=== PATIENT | male | born 1955 | race Caucasian/White ===

== ENCOUNTER 2017-04-01 16:04 | Observation (INO) | payer OTHER ==
[~2017-04-01] VITALS: Ht 180.3 cm; Wt 90.6 kg
[2017-04-01 16:45] LABS: HEMATOCRIT 34.5 % (38.0-50.0); MCH 24.9 PG (29.0-34.0); MCHC 30.7 G/DL (30.0-36.0); MEAN PLAT.VOLUME 8.6 uM^3 (9.0-12.4); PLATELET COUNT 411 K/uL (156-360); RBC DIS.WIDTH-CV 14.5 % (11.8-14.6); RBC DIS.WIDTH-SD 42.4 % (39-53); RED BLOOD COUNT 4.26 M/uL (4.00-5.50)
[2017-04-01 16:53] LABS: INTER. NORMALIZED RATIO 1.3; PROTHROMBIN TIME 12.8 (9.2-11.2)
[2017-04-01 16:58] LABS: CHLORIDE 101 mEq/L (99-109); POTASSIUM 4.5 mEq/L (3.7-5.4); SODIUM 134 mEq/L (136-147)
[2017-04-01 17:01] LABS: GLUCOSE 111 mg/dL (70-99)
[2017-04-01 17:02] LABS: ANION GAP 8 MEQ/L (2-14)
[2017-04-01 17:03] LABS: TOTAL BILIRUBIN 0.3 mg/dL (0.0-1.0)
[2017-04-01 17:04] LABS: ALKALINE PHOSPHATASE 88 IU/L (3-129); GFR ESTIMATE (CALCULATED) > 59 mL/min/
[2017-04-01 17:05] LABS: UREA NITROGEN (BUN) 14 mg/dL (9-23)
[2017-04-01 17:08] LABS: LIPASE 14 U/L (1.0-51.0)
[2017-04-01 17:09] LABS: TROP-I INTERPRETATION NEGATIVE; TROPONIN-I < 0.01 ng/mL (0.0-0.30)
[2017-04-01] MEDS ORDERED: OMEPRAZOLE40 M1 PO (18:15)
[2017-04-01] MEDS ORDERED: MIRALAX255 GM PO (20:13)
[2017-04-01] MEDS ORDERED: OMEPRAZOLE20 MG PO (20:13)
[2017-04-01] MEDS ORDERED: DULCOLAX10 MG PR (20:13)
[2017-04-01] MEDS ORDERED: TRAMADOL HCL50 MG PO (20:13)
[2017-04-01] MEDS ORDERED: CENTRUM SILVER1 EAC5 PO (20:13)
[2017-04-01] MEDS ORDERED: ZOFRAN4 MG PO (20:14)
[2017-04-01] MEDS ORDERED: LO-DOSE ASPIRIN81 M2 PO (20:14)
[2017-04-01 21:14] LABS: SAMPLE HEMOLYSIS CHECK 0; SAMPLE ICTERIC CHECK 0; SAMPLE LIPEMIA CHECK 0
[2017-04-01 22:02] VITALS: BP 141/89
[2017-04-01 22:09] LABS: LACTATE DEHYDROGENASE 119 IU/L (20-246)
[2017-04-01 23:09] LABS: TROP-I INTERPRETATION NEGATIVE; TROPONIN-I < 0.01 ng/mL (0.0-0.30)
[2017-04-02 00:37] VITALS: BP 144/87
[2017-04-02 03:36] VITALS: BP 135/85
[2017-04-02 03:57] LABS: ADD MIUA? YES; BILIRUBIN NEGATIVE; BLOOD SMALL; COLOR YELLOW ((YELLOW)); GLUCOSE (STRIP) 50; KETONES NEGATIVE; LEUKOCYTES NEGATIVE; NITRITE NEGATIVE; PROTEIN (STRIP) 30; SPECIFIC GRAVITY 1.041 (1.000-1.030); UROBILINOGEN 0.2 MG/DL (0.2-1.0)
[2017-04-02 04:09] LABS: BACTERIA NONE SEEN /HPF; EPITHELIAL CELLS NONE SEEN /HPF; MUCUS TRACE /LPF; UCUL ADDED? NO; WHITE BLOOD CELLS 0-5 /HPF (0-5)
[2017-04-02 05:53] LABS: HEMATOCRIT 33.9 % (38.0-50.0); MCH 25.1 PG (29.0-34.0); MCHC 30.7 G/DL (30.0-36.0); MCV 81.9 FL (86-99); MEAN PLAT.VOLUME 8.9 uM^3 (9.0-12.4); PLATELET COUNT 405 K/uL (156-360); RBC DIS.WIDTH-CV 14.6 % (11.8-14.6); RBC DIS.WIDTH-SD 43.2 % (39-53); RED BLOOD COUNT 4.14 M/uL (4.00-5.50); WHITE BLOOD COUNT 13.8 K/uL (4.1-10.2)
[2017-04-02 06:18] LABS: INTER. NORMALIZED RATIO 1.2; PROTHROMBIN TIME 12.7 (9.2-11.2)
[2017-04-02 06:24] LABS: TROP-I INTERPRETATION NEGATIVE; TROPONIN-I < 0.01 ng/mL (0.0-0.30)
[2017-04-02 06:34] LABS: ANION GAP 7 MEQ/L (2-14); CHLORIDE 97 MEQ/L (99-109); GFR ESTIMATE (CALCULATED) > 59 mL/min/; GLUCOSE 94 mg/dL (70-99); POTASSIUM 4.7 MEQ/L (3.7-5.4); SAMPLE HEMOLYSIS CHECK 0; SAMPLE ICTERIC CHECK 0; SAMPLE LIPEMIA CHECK 0; SODIUM 133 MEQ/L (136-147); UREA NITROGEN (BUN) 14 mg/dL (9-23)
[2017-04-02 08:50] VITALS: BP 159/97
[2017-04-02] MEDS ORDERED: DOCUSATE SODIU100 MG PO (10:37)
[2017-04-02] MEDS ORDERED: OXYCODONE-APAP1 EACH PO (10:37)
[2017-04-02 12:46] VITALS: BP 143/85
== END 2017-04-02 13:40 | disposition home or self-care (01) ==
LOC: EME → EDBD 16:04 → EDOF 20:05 → 5WEST 21:51
PROVIDERS: Emergency Medicine; Internal Medicine
DX: R07.9 Chest pain, unspecified (principal); R11.2 Nausea with vomiting, unspecified; M54.9 Dorsalgia, unspecified; Z87.891 Personal history of nicotine dependence; I48.91 Unspecified atrial fibrillation; M48.06 Spinal stenosis, lumbar region; R59.0 Localized enlarged lymph nodes; K21.9 Gastro-esophageal reflux disease without esophagitis; R63.4 Abnormal weight loss; K59.00 Constipation, unspecified
CPT/HCPCS: 71010; 71275; 80048; 80053; 81003; 83615; 83690; 83880; 84484; 85027; 85610; 93005; 99281; 99285; G0378; J1650; J2270; J2405

== ENCOUNTER 2017-04-22 19:43 | Inpatient (IN) | payer OTHER ==
[~2017-04-22] VITALS: Ht 180.3 cm; Wt 94.8 kg
[~2017-04-22 19:43] MED LIST: CENTRUM SILVER1 EAC5 PO; DOCUSATE SODIU100 MG PO; DULCOLAX10 MG PR; LO-DOSE ASPIRIN81 M2 PO; MIRALAX255 GM PO; OMEPRAZOLE20 MG PO; OMEPRAZOLE40 M1 PO; OXYCODONE-APAP1 EACH PO; TRAMADOL HCL50 MG PO; ZOFRAN4 MG PO
[2017-04-22 20:45] LABS: HEMATOCRIT 27.7 % (38.0-50.0); MCH 24.5 PG (29.0-34.0); MCHC 30.7 G/DL (30.0-36.0); MCV 79.8 FL (86-99); MEAN PLAT.VOLUME 8.4 uM^3 (9.0-12.4); PLATELET COUNT 394 K/uL (156-360); RBC DIS.WIDTH-CV 14.7 % (11.8-14.6); RBC DIS.WIDTH-SD 42.8 % (39-53); RED BLOOD COUNT 3.47 M/uL (4.00-5.50)
[2017-04-22 20:56] LABS: CHLORIDE 99 mEq/L (99-109); POTASSIUM 3.5 mEq/L (3.7-5.4); SODIUM 132 mEq/L (136-147)
[2017-04-22 20:58] LABS: GLUCOSE 103 mg/dL (70-99)
[2017-04-22 21:00] LABS: ANION GAP 9 MEQ/L (2-14); TOTAL BILIRUBIN 0.3 mg/dL (0.0-1.0)
[2017-04-22 21:02] LABS: ALKALINE PHOSPHATASE 139 IU/L (3-129); GFR ESTIMATE (CALCULATED) > 59 mL/min/
[2017-04-22 21:03] LABS: UREA NITROGEN (BUN) 12 mg/dL (9-23)
[2017-04-22 21:06] LABS: LIPASE 10 U/L (1.0-51.0)
[2017-04-22] MEDS ORDERED: OXYCODONE HCL10 MG PO (22:42)
[2017-04-22] MEDS ORDERED: KADIAN30 MG PO (22:42)
[2017-04-23 03:22] VITALS: BP 130/76
[2017-04-23 08:45] VITALS: BP 135/84
[2017-04-23 11:44] VITALS: BP 132/86
[2017-04-23 15:56] VITALS: BP 142/90
[2017-04-23 19:00] VITALS: BP 148/86
[2017-04-23 23:21] VITALS: BP 142/69
[2017-04-24 06:18] LABS: BASOPHIL COUNT 0.1 K/uL (0-0.1); EOSINOPHIL (%) 5.6 % (0-5); EOSINOPHIL COUNT 0.8 K/uL (0-0.3); HEMATOCRIT 28.5 % (38.0-50.0); IMMATURE GRANULOCYTE COUNT 0.2 K/uL; INSTRUMENT ABS NEUTROPHIL CT 9.4 K/uL; LYMPHOCYTE COUNT 2.8 K/uL (1.0-2.8); MCH 25.1 PG (29.0-34.0); MCHC 30.5 G/DL (30.0-36.0); MCV 82.1 FL (86-99); MEAN PLAT.VOLUME 8.8 uM^3 (9.0-12.4); MONOCYTE (%) 10.4 % (3-12); MONOCYTE COUNT 1.5 K/uL (0-0.8); NEUTROPHIL (%) 63.5 % (45-76); NEUTROPHIL COUNT 9.4 K/uL (1.8-6.4); PLATELET COUNT 429 K/uL (156-360); RBC DIS.WIDTH-CV 14.7 % (11.8-14.6); RBC DIS.WIDTH-SD 44.5 % (39-53); RED BLOOD COUNT 3.47 M/uL (4.00-5.50); WHITE BLOOD COUNT 14.8 K/uL (4.1-10.2)
[2017-04-24 06:27] LABS: INTER. NORMALIZED RATIO 1.4; PROTHROMBIN TIME 14.1 (9.2-11.2); PTT 30.5 (25-32)
[2017-04-24 06:42] LABS: ALKALINE PHOSPHATASE 128 IU/L (3-129); ANION GAP 7 MEQ/L (2-14); CHLORIDE 98 MEQ/L (99-109); GFR ESTIMATE (CALCULATED) > 59 mL/min/; GLUCOSE 102 mg/dL (70-99); POTASSIUM 3.8 MEQ/L (3.7-5.4); SAMPLE HEMOLYSIS CHECK 0; SAMPLE ICTERIC CHECK 0; SAMPLE LIPEMIA CHECK 0; SODIUM 132 MEQ/L (136-147); TOTAL BILIRUBIN 0.4 MG/DL (0.0-1.0); UREA NITROGEN (BUN) 10 mg/dL (9-23)
[2017-04-24 07:04] VITALS: BP 136/84
[2017-04-24 08:39] LABS: ADD MIUA? YES; BILIRUBIN NEGATIVE; BLOOD NEGATIVE; COLOR YELLOW ((YELLOW)); GLUCOSE (STRIP) NEGATIVE; KETONES 5; LEUKOCYTES NEGATIVE; NITRITE NEGATIVE; PROTEIN (STRIP) 30; SPECIFIC GRAVITY 1.016 (1.000-1.030)
[2017-04-24 08:51] LABS: BACTERIA RARE /HPF; EPITHELIAL CELLS RARE /HPF; MUCUS 4+ /LPF; UCUL ADDED? NO; WHITE BLOOD CELLS 0-5 /HPF (0-5)
[2017-04-24 11:46] VITALS: BP 138/83
[2017-04-24 17:09] VITALS: BP 150/88
[2017-04-24 19:44] VITALS: BP 137/86
[2017-04-25] VITALS (7 sets, daily range): BP systolic 131–156; BP diastolic 70–83
[2017-04-25 06:26] LABS: IRON 13 MCG/DL (35-150)
[2017-04-25 06:42] LABS: LACTATE DEHYDROGENASE 144 IU/L (20-246)
[2017-04-25 09:59] LABS: HBSG INDEX 0.26; HPCA INDEX 0.14
[2017-04-25 10:02] LABS: ANTI-HEPATITIS A VIRUS (IGM) Nonreactive; ANTI-HEPATITIS B CORE (IGM) Nonreactive; HAV INDEX 0.12; HBC IgM INDEX 0.06
[2017-04-26 04:30] VITALS: BP 138/80
[2017-04-26 06:49] VITALS: BP 144/88
[2017-04-26 11:54] LABS: HEMATOCRIT 29.7 % (38.0-50.0); MCH 25.3 PG (29.0-34.0); MCHC 30.6 G/DL (30.0-36.0); MCV 82.5 FL (86-99); MEAN PLAT.VOLUME 8.4 uM^3 (9.0-12.4); PLATELET COUNT 423 K/uL (156-360); RBC DIS.WIDTH-SD 45.1 % (39-53); WHITE BLOOD COUNT 13.3 K/uL (4.1-10.2)
[2017-04-26 12:00] VITALS: BP 136/80
[2017-04-26 12:27] LABS: ALKALINE PHOSPHATASE 136 IU/L (3-129); ANION GAP 6 MEQ/L (2-14); CHLORIDE 97 MEQ/L (99-109); GFR ESTIMATE (CALCULATED) > 59 mL/min/; GLUCOSE 115 mg/dL (70-99); POTASSIUM 4.1 MEQ/L (3.7-5.4); SAMPLE HEMOLYSIS CHECK 0; SAMPLE ICTERIC CHECK 0; SAMPLE LIPEMIA CHECK 0; SODIUM 132 MEQ/L (136-147); TOTAL BILIRUBIN 0.4 MG/DL (0.0-1.0); UREA NITROGEN (BUN) 11 mg/dL (9-23)
[2017-04-26 15:44] VITALS: BP 139/76
[2017-04-26 17:43] LABS: Flow Clinical Information NOT PROVIDED (()); Flow Number of Markers 22 (()); Flow Spec Viability 71 % (())
[2017-04-26 19:25] VITALS: BP 136/73
[2017-04-26 23:06] VITALS: BP 145/81
[2017-04-27 04:40] VITALS: BP 135/77
[2017-04-27 07:41] VITALS: BP 131/79
[2017-04-27 11:45] VITALS: BP 118/73
[2017-04-27 15:27] VITALS: BP 143/81
[2017-04-27 19:42] VITALS: BP 133/83
[2017-04-27 23:39] VITALS: BP 139/82
[2017-04-28 03:33] VITALS: BP 141/80
[2017-04-28 07:23] VITALS: BP 138/85
[2017-04-28] MEDS ORDERED: HYDROMORPHONE HC2 MG PO (08:16)
[2017-04-28] MEDS ORDERED: HYDROMORPHONE HC4 MG PO (08:16)
[2017-04-28] MEDS ORDERED: MORPHINE SULFAT15 M1 PO (08:16)
== END 2017-04-28 12:05 | disposition home or self-care (01) | DRG 675 ==
LOC: RME 19:43 → EME 19:43 → EDOF 04-23 01:12 → 5WEST 04-23 03:17 → 4SOUTH 04-23 10:45 → 5SOUTH 04-27 19:08
PROVIDERS: Anesthesiology; Hospitalist; Nurse Practitioner Family; Radiology Diagnostic Radiology
PROC: 07BD3ZX Excision of Aortic Lymphatic, Percutaneous Approach, Diagnostic (ICD-10-PCS; principal; 2017-04-24)
DX: C64.2 Malignant neoplasm of left kidney, except renal pelvis (principal); R63.0 Anorexia; D72.829 Elevated white blood cell count, unspecified; K21.9 Gastro-esophageal reflux disease without esophagitis; K44.9 Diaphragmatic hernia without obstruction or gangrene; K57.90 Diverticulosis of intestine, part unspecified, without perforation or abscess without bleeding; K63.5 Polyp of colon; Z79.82 Long term (current) use of aspirin; Z79.899 Other long term (current) drug therapy; Z80.42 Family history of malignant neoplasm of prostate; Z83.3 Family history of diabetes mellitus; Z87.891 Personal history of nicotine dependence; Z95.5 Presence of coronary angioplasty implant and graft; M48.06 Spinal stenosis, lumbar region; R11.2 Nausea with vomiting, unspecified; R59.0 Localized enlarged lymph nodes; R63.4 Abnormal weight loss; R68.83 Chills (without fever)
CPT/HCPCS: 74000; 74177; 77012; 80053; 80074; 81003; 82607; 82746; 83540; 83605; 83615; 83690; 84443; 84466; 85025; 85027; 85610; 85730; 88184 90; 88185 90; 88189 90; 88305; 88341 TC; 88342 TC; 93005; 99281; 99285; J1170; J1650; J1756; J2270; J2405; J2765; J3010; J7030; J7050; S0028